=== PATIENT | female | born 1995 | race African-American/Black ===

== ENCOUNTER 2016-07-16 06:44 | Emergency (ER) | payer OTHER ==
[~2016-07-16] VITALS: Ht 157.5 cm; Wt 90.7 kg
[~2016-07-16 06:44] MED LIST: BACLOFEN10 M1 PO; FLEXERIL10 MG PO; IBUPROFEN800 M1 PO; NAPROXEN500 MG PO; REGLAN10 MG PO; ULTRAM50 M1 PO
[2016-07-16 06:48] VITALS: BP 137/89
[2016-07-16] MEDS ORDERED: Magic mouthwash PO (07:24)
[2016-07-16] MEDS ORDERED: IBUPROFEN600 M1 PO (07:24)
[2016-07-16] MEDS ORDERED: AMOXICILLIN875 M1 PO (07:24)
[2016-07-16] MEDS ORDERED: PREDNISONE20 M1 PO (07:24)
--- NOTE | 2016-07-16 07:27 | ED THROAT/DENTAL COMPLAINT ---
History of Present Illness General Chief Complaint: Sore Throat, Dental Pain Stated Complaint: SORE THROAT Source: patient, old records Exam Limitations: no limitations Vital Signs & Intake/Output Vital Signs & Intake/Output Vital Signs Date Time Temp Pulse Resp B/P B/P Pulse O2 O2 Flow FiO2 Mean Ox Delivery Rate 07/17 647 98.7 94 18 137/89 98 Room Air Room Air Allergies Coded Allergies: NO KNOWN ALLERGIES (03/16/15) Reconcile Medications Amoxicillin 875 MG TABLET 1 TAB PO BID laryngitis Baclofen 10 MG TABLET 1 TAB PO TIDPRN PRN muscle spasm/strain Ibuprofen 800 MG TABLET 1 TAB PO Q6PRN PRN pain Ibuprofen 600 MG TABLET 1 TAB PO Q6PRN PRN pain with food [Magic mouthwash] 5-10 ML PO Q6P PRN throat pain 1:1:1 viscous lidocaine:maalox:benadryl Prednisone 20 MG TABLET 1 TAB PO BID laryngitis Tramadol HCl (Ultram) 50 MG TABLET 1-2 TAB PO Q6PRN PRN severe pain Triage Note: TRIAGE: 21 Y/O FEMALE C/O SORE THROAT 10/20, WORSENING SINCE YESTERDAY. VOICE HOARSE IN TRIAGE, INSTRUCTED TO LIMIT CONVERSATION. AFEBRILE. STREP SWABS OBTAINED AND SENT TO LAB. Triage Nurses Notes Reviewed? yes Onset: 2 days Duration: day(s):, constant, continues in ED, getting worse Timing: recent history Injury Environment: home Severity: moderate Modifying Factors: Worsens With: eating. LMP (ages 10-50): unknown : No Patient currently breastfeeds: No HPI: 2 days prior to admission patient complains of congestion nonproductive cough and sore throat worse with eating. Awoke this morning with continued sore throat and hoarse voice. She denies fever chills nausea vomiting diarrhea abdominal pain chest pain shortness breath headache dysuria rash bleeding. Past History Travel History Traveled to [place] past 21 day No Medical History Any Pertinent Medical History? see below for history Neurological: NONE EENT: NONE Cardiovascular: NONE Respiratory: asthma Gastrointestinal: NONE Hepatic: NONE Renal: NONE Musculoskeletal: NONE Psychiatric: NONE Endocrine: NONE Surgical History Surgical History: non-contributory Psychosocial History What is your primary language Lao Tobacco Use: Never used ETOH Use: occasional use Illicit Drug Use: denies illicit drug use Family History Hx Contributory? No Review of Systems Review of Systems Constitutional: Reports: see HPI, malaise. EENTM: Reports: see HPI, nasal congestion, throat pain. Respiratory: Reports: see HPI, cough. Cardiovascular: Reports: no symptoms. GI: Reports: no symptoms. Genitourinary: Reports: no symptoms. Musculoskeletal: Reports: no symptoms. Skin: Reports: no symptoms. Neurological/Psychological: Reports: no symptoms. Hematologic/Endocrine: Reports: no symptoms. Immunologic/Allergic: Reports: no symptoms. All Other Systems: Reviewed and Negative Physical Exam Physical Exam General Appearance: well developed/nourished, alert, awake, anxious, mild distress, obese Head: atraumatic, normal appearance Eyes: Bilateral: normal appearance, PERRL, EOMI. Ears: Bilateral: canal normal, Tympanic normal. 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 No Severe Sepsis Present: No Septic Shock Present: No Progress Differential Diagnosis: epiglottitis, marina-tonsillar abscess, stomatitis/ gingivitis, strep pharyngitis Plan of Care: Orders Procedure Date/time Status THROAT CULTURE W/QUICK STREP 07/16 0650 Active Departure Departure Time of Disposition: 719 Disposition: HOME OR SELF CARE Condition: Stable Clinical Impression Primary Impression: Laryngitis, acute Secondary Impressions: Pharyngitis, acute Qualifiers: Pharyngitis/tonsillitis etiology: unspecified etiology Qualified Code: J02.9 - Acute pharyngitis, unspecified Referrals: PATIENT HAS NO PRIMARY CARE DR (PCP/Family) Departure Forms: Customer Survey General Discharge Information RELEASE- WORK Prescriptions: Current Visit Scripts Amoxicillin 1 TAB PO BID #20 TAB Prednisone 1 TAB PO BID #10 TAB Ibuprofen 1 TAB PO Q6PRN PRN pain #50 TAB with food [Magic mouthwash] 5-10 ML PO Q6P PRN throat pain #270 ML 1:1:1 viscous lidocaine:maalox:benadryl
== END 2016-07-16 08:02 ==
LOC: ERH 06:44
DX: J04.0 Acute laryngitis (principal); J02.9 Acute pharyngitis, unspecified